=== PATIENT | male | born 1965 | race Caucasian/White ===

== ENCOUNTER 2019-08-17 06:05 | Inpatient (IN) | payer BC, OTHER ==
[2019-08-11 09:43] LABS: HEMATOCRIT 39.5 % (42.0-52.0); HEMOGLOBIN 13.4 gm/dL (14.0-18.0); MCH 32.2 pg (26.0-34.0); MCV 94.7 fL (80.0-100.0); RBC 4.17 mil/uL (4.50-6.00); WBC 4.4 thou/uL (4.0-11.0)
[2019-08-11 09:50] LABS: URINE BLOOD NEGATIVE (Negative); URINE CLARITY CLEAR; URINE GLUCOSE-RANDOM* NEGATIVE (Negative); URINE KETONES TRACE (Negative); URINE LEUKOCYTES-REFLEX NEGATIVE (Negative); URINE NITRITE-REFLEX NEGATIVE (Negative); URINE PROTEIN (DIPSTICK) TRACE (Negative); URINE SPECIFIC GRAVITY >= 1.030 (1.005-1.035)
[2019-08-11 09:51] LABS: URINE COLOR DK YELLOW
[2019-08-11 09:53] LABS: ICTOTEST (BILI CONFIRMATORY) Negative (Negative); URINE BILIRUBIN NEGATIVE (Negative)
[2019-08-11 09:55] LABS: PROTIME 10.7 Seconds (9.3-11.4)
[2019-08-11 10:11] LABS: ALBUMIN 3.4 g/dL (3.4-5.0); CALCIUM 8.6 mg/dL (8.5-10.1); CREATININE 0.7 mg/dL (0.7-1.3); POTASSIUM 4.1 mmol/L (3.5-5.1)
--- NOTE | 2019-08-12 08:00 | EKG ---
[facility] [place] [address] ELECTROCARDIOGRAM REPORT Name: MARILUZ CASTLE [place] #: [place] [facility] [place] [id number] Admission: Attend Phys: Sixto Roach MD Discharge: Date of : 69 Report #: [id number] THIS REPORT FOR: cc: Jamarcus Tidwell MD, Greg L. MD Lundgren,Lobo Kelly MD LOCATED WITHIN [facility] ~ THIS REPORT FOR: //name// [facility] Test Date: 2019-08-11 Test Time: 09:44:35 Pat Name: MARILUZ CASTLE Department: Room: Gender: [place] Coordinator: Bessie FLANAGAN : 1965 Requested By: Sixto Roach Order Number: [id number] MD: Lobo Ahn Measurements Intervals [place] Rate: 65 P: 28 [place]: 152 QRS: 39 QRSD: 115 T: 29 QT: 412 QTc: 429 Interpretive Statements Sinus rhythm Right ventricular conduction delay No previous ECG available for comparison Electronically Signed On 08-12-2019 7:58:39 CDT by Lobo Ahn [email or web address] <ELECTRONICALLY SIGNED> By: Lobo Ahn MD, LOCATED WITHIN [facility] 08/12/19 0758 3 Lobo Ahn MD, LOCATED WITHIN [facility] /EPI
[~2019-08-17] VITALS: Ht 177.8 cm; Wt 128.4 kg
--- NOTE | ~2019-08-17 | O ---
[facility] [place] [address] OPERATIVE REPORT Name: MARILUZ CASTLE Room #: 434-P [facility] IN M.R.#: [id number] Admission: 08/17/19 Attend Phys: Sixto Roach MD Discharge: Date of : 69 Report #: [id number] THIS REPORT FOR: cc: Jamarcus Tidwell MD, Greg L. MD Abraham,Sixto Dowell MD ~ CC: Jamarcus Roach DATE OF SERVICE: 08/17/2019 PREOPERATIVE DIAGNOSES: 1. Left hip osteoarthritis. 2. Morbid obesity with body mass index of 41. POSTOPERATIVE DIAGNOSES: 1. Left hip osteoarthritis. 2. Morbid obesity with body mass index of 41. PROCEDURE: Left total hip arthroplasty. SURGEON: Sixto Roach MD. SURGEON ASSISTANT: Alexsandra Huggins PA-C. INDICATIONS FOR SURGEON ASSISTANT: Throughout the case, extensive ____ and manipulation of the hip including dislocation and reduction and excessive force was required given the patient's BMI. This was afforded to me by my registrar assistant. ANESTHESIA: LMA. IMPLANTS: [employer]hew size 58 R3 acetabular cup with one acetabular screw size 13 high offset Synergy press-fit stem, size 40+0 Oxinium head. ESTIMATED BLOOD LOSS: Less than 100 mL. COMPLICATIONS: None. SPECIMENS: None. CONDITION UPON LEAVING THE OPERATING ROOM: Stable. INDICATIONS FOR PROCEDURE: The patient is a 53-year-old gentleman with severe left hip osteoarthritis. He had failed conservative measures for this and after discussion with him, he elected for left total hip arthroplasty. [facility] [place] [address] [place] [address] OPERATIVE REPORT Name: MARILUZ CASTLE Room #: 434-P [facility] IN M.R.#: [id number] Admission: 08/17/19 Attend Phys: Sixto Roach MD Discharge: Date of : 69 Report #: [id number] DESCRIPTION OF PROCEDURE: Risks, benefits, alternatives, complications were discussed in detail with the patient including but not limited to risk of anesthesia, risk of damage to nerves, arteries, blood vessels, risk for infection, bleeding, risk for continued hip pain, leg length discrepancy, instability and need for reoperation. Informed consent was obtained from the patient. Left hip was appropriately marked in the preoperative holding area. IV Ancef was given for preoperative antibiotics. He was brought to the operating room and placed in supine position on operating room table. LMA anesthesia was induced without complication. He was then placed in the right lateral decubitus position with left hip uppermost. Left hip and lower extremity were prepped and draped in normal sterile fashion. Timeout was performed properly identifying the patient and procedure as well as the instrumentation and implants. All in the operating room were in agreement. Standard posterior approach to the hip was made with 10 blade through the skin. Dissection was taken down to the fascia with Bovie cautery. Butler elevator was used to clean the fascia. Fresh 10 blade was used to make a fascial incision. This was taken proximally and distally with curved Ontiveros scissor. Charnley retractor was placed. Trochanteric bursa was taken down with Bovie cautery. Piriformis tendon was identified, tagged and taken down with the Bovie. Short external rotators were also taken down with Bovie cautery. Capsulotomy was made and the capsule ends were tagged for later repair. The hip was then dislocated and there was extensive osteoarthritic change ____. Femoral neck cut was made 1 cm proximal to lesser trochanter based on preoperative templating and the femoral head was removed. Deep acetabular retractors were placed. Labrum was removed sharply. Pulvinar was removed with Bovie cautery. Acetabulum was then sequentially reamed up to a size 58 at which point there was excellent bleeding cancellous bone. A size 57 trial cup was placed, found to have a good fit. Final size 58 R3 acetabular cup was then placed and seated. One acetabular screw was placed for backup fixation and a polyethylene liner for a 40 head was placed. Attention was then turned to the femur. This was reamed and broached up to a size 13 at which point the size 13 broach was stable, was trialed with a high offset neck and a 40+0 head. Hip was reduced, taken through range of motion, found to be stable, found to have good stability and equal leg lengths. The hip was dislocated and broach was removed. Final size 13 high offset Synergy press-fit stem was placed and seated. This was trialed again with a 40+0 head. Hip was reduced, taken through range of motion, found to be stable, found to have equal leg lengths. Hip was dislocated one last time and a final size 40+0 Oxinium head was placed. Hip was reduced, taken through range of motion, found to be stable. The hip was thoroughly irrigated with normal saline. Periarticular injection consisting of morphine, ropivacaine, epinephrine and Toradol was placed around the hip joint capsule. A gram of vancomycin was placed deep in the joint. The capsule and piriformis were repaired with 0 FiberWire. Fascia was closed with 0 Vicryl, skin was closed with 2-0 Vicryl, skin staple and a YAKOV dressing was applied. The patient [address] [address] OPERATIVE REPORT Name: MARILUZ CASTLE Room #: 434-P [facility] IN M.R.#: [id number] Admission: 08/17/19 Attend Phys: Sixto Roach MD Discharge: Date of : 69 Report #: [id number] tolerated this procedure well and went to recovery room under care of anesthesia postoperatively. By: 1210 [id number] Sixto Roach MD /nt
[~2019-08-17 06:05] MED LIST: AZELASTINE205.5 MCG/ NARES; CELEXA20 MG PO; FOLIXAPURE5000 UNIT PO; IPRATROPIU0.2 MG/1 M INH; LIPITOR40 MG PO; MULTI VITAMIN1 EACH PO; OMEPRAZOLE 20 M20 M1 PO; PROVIGIL 100 M100 MG PO; VITAMIN B-121000 MC2 SUBLING
[2019-08-17 07:24] VITALS: BP 109/40
--- NOTE | 2019-08-17 13:50 | NUR ---
PATIENT ADMITTED FROM OR, ARRIVED ON THE UNIT AT 1200. LEFT TOTAL HIP REPLACEMENT, WITH YAKOV DRESSING, AND ICE PACK TO LEFT HIP AREA. PATIENT IS ALERT AND ORIENTED X 4. PATIENT C/O PAIN WITH LEFT HIP AREA, OXYCODONE 1 TABLET GIVEN, PAIN LEVEL 7/10. PATIENT HAS RIGHT HAND IV WITH D51/2 NS AT 100CC/HR. PAIENT ALSO HAS KNEE HIGH MAGDY HOSE AND SCD'S IN PLACE. POSTOP VITALS ARE BEING DONE. PATIENT VOIDED 1000CC OF URINE. ADMISSION PACKET GIVEN. LUNCH TRAY ORDERED. ADMISSION DONE EXCEPT PLAN OF CARE. WILL REPORT TO VIRGIL/RN.
[2019-08-17 14:52] VITALS: BP 109/40
--- NOTE | 2019-08-18 08:43 | NUR ---
RECEIVED OT ORDERS TO EVALUATE AND TREAT. PATIENT DISCHARGED PRIOR TO OT BEING INITIATED.
== END 2019-08-17 15:41 | disposition home or self-care (01) | DRG 470 ==
LOC: OR 06:05 → TBA 06:07 → OR 08:38 → 4S 12:08 → OR 15:34 → 4S 15:41
PROVIDERS: ADMIT Orthopaedic Surgery
PROC: 0SRB06A Replacement of Left Hip Joint with Oxidized Zirconium on Polyethylene Synthetic Substitute, Uncemented, Open Approach (ICD-10-PCS; principal; 2019-08-17)
DX: M16.12 Unilateral primary osteoarthritis, left hip (principal); Z68.41 Body mass index [BMI] 40.0-44.9, adult; E66.01 Morbid (severe) obesity due to excess calories; Z03.818 Encounter for observation for suspected exposure to other biological agents ruled out
CPT/HCPCS: 10102; 50010; 50101; 50382; 50414; 51412; 53078; 53368; 56524; 56528; 56530; 57095; 57103; 57104; 70005